=== PATIENT | female | born 1995 | race African-American/Black ===

== ENCOUNTER 2016-12-19 10:26 | Emergency (ER) | payer OTHER ==
[~2016-12-19] VITALS: Ht 157.5 cm; Wt 73.0 kg
[2016-12-19 10:44] VITALS: Ht 157.5 cm; Wt 73.0 kg
[2016-12-19] MEDS ORDERED: ACETAMINOPHEN 500 MG TAB PO STA (12:14)
[2016-12-19] MEDS ORDERED: ACET325T33 PO (12:16)
[2016-12-19] MEDS ORDERED: PRED20TA PO (12:16)
[2016-12-19] MEDS ORDERED: NAPR-260 PO (12:16)
[2016-12-19] MEDS ORDERED: PEN500 PO (12:16)
[2016-12-19] MEDS ORDERED: predniSONE 20 MG TAB PO ONE (12:30)
[2016-12-19 13:21] VITALS: BP 122/62; PULSE 77; RESP 16; TEMP 99
--- NOTE | 2016-12-19 15:06 | ERD ---
DATE OF SERVICE: 12/19/2016 HISTORY OF PRESENT ILLNESS: The patient is a 21-year-old female coming in complaining of a fever an d sore throat. Patient states it hurts to swallow and has been going on for the last 4 days. She i s not taking medications for her symptoms. She has no cough, no runny nose. Positive sick contacts at home. No vomiting, no abdominal pain, no change in urination or bowel movements. PAST MEDICAL HISTORY: Denies any medical problems. ALLERGIES: DENIES TO MEDICATIONS. HOSPITALIZATIONS: Denies. IMMUNIZATIONS: Up to date on vaccinations. SOCIAL HISTORY: Last normal menstrual period 1 month ago. REVIEW OF SYSTEMS: A 12-point review of systems was done. Refer to HPI for positives, all other sy stems negative. PHYSICAL EXAMINATION VITAL SIGNS: Temperature is 101.1, pulse is 118, blood pressure is 133/72, respiratory rate 20, O2 saturation 100% on room air. Pain intensity is 7/10. GENERAL: The patient is well-appearing, well-nourished, no acute distress. HEENT: Atraumatic. Conjunctivae are pink. Pupils equal, round, and reactive to light. There is no s cleral icterus. Tympanic membranes clear bilaterally. Oropharynx clear. No nystagmus or photophobia . The patient has erythematous tonsils bilaterally with exudate. Uvula is midline. No unilateral fullness noted posterior fornix. CHEST: Clear to auscultation bilaterally. There are no rales, wheezes or rhonchi. HEART: Regular rate and rhythm. No murmurs, clicks, rubs or gallops. No S3 or S4. ABDOMEN: Soft, nontender and nondistended. Good bowel sounds. No rebound or guarding. No gross jana tonitis. No gross organomegaly or masses. No Thomas sign or McBurney point tenderness. BACK: No midline or flank tenderness. SKIN: There is no apparent rash or petechia. The skin is warm and dry. DIAGNOSIS: Streptococcus presumed. EMERGENCY ROOM COURSE: The patient given Tylenol and prednisone in the ER. MEDICAL DECISION MAKING: I have low suspicion for peritonsillar retropharyngeal abscess. Patient m ay have underlying mono. However, treat as strep and was given strict mono precautions. I have low suspicion for deep tracking abscess or meningitis or sepsis. DISCHARGE: The patient is discharged stable. Patient is given a prescription for penicillin, Napro xen, Tylenol and prednisone and told to follow up with primary care within 1 to 2 days for reevaluat ion. Patient was told if symptoms progress or worsen to return to the ER. All other questions answ ered at time of discharge. Discharge summary given at the time of departure. Patient understood an d complied with plan. Dictated By: ALEJANDRO VENTURA/RANDA Conf#: [id number] DID#: [id number]
== END 2016-12-19 13:22 | disposition home or self-care (01) ==
LOC: FTE 10:26
DX: R50.9 Fever, unspecified (principal); J02.9 Acute pharyngitis, unspecified
CPT/HCPCS: J7512; Z7502; Z7610; 99284